=== PATIENT | female | born 1985 | race American Indian/Alaskan Native ===

== ENCOUNTER 2017-08-27 02:11 | Emergency (ER) | payer BC ==
[2017-08-27 03:59] LABS: Bacteria,Urine 1+ /HPF (Negative); Bilirubin,Urine NEG (Negative); Blood,Urine MOD (Negative); Color,Urine Yellow (Yellow); Mucus,Urine 2+ /HPF; Protein,Urine <15 mg/dL mg/dL (Negative); Urobilinogen,Urine < 2.0 mg/dL (<2.0)
[2017-08-27 04:10] LABS: Basophils # (Auto) 0.1 K/mm3 (0.0-0.1); Basophils % (Auto) 0.7 % (0.0-1.8); Eosinophils % (Auto) 0.2 % (0.0-4.3); Hematocrit 34.2 % (30.3-42.9); Hemoglobin 10.7 gm/dl (10.1-14.3); Lymphocytes # (Auto) 1.2 K/mm3 (1.2-5.4); Lymphocytes % (Auto) 9.5 % (13.4-35.0); Mean Corpuscular HGB Conc 31 % (30-34); Mean Corpuscular Volume 82 fl (79-97); Monocytes # (Auto) 0.3 K/mm3 (0.0-0.8); Monocytes % (Auto) 2.3 % (0.0-7.3); Platelet Count 495 K/mm3 (140-440); Red Blood Count 4.19 M/mm3 (3.65-5.03); Red Cell Distribution Width 16.8 % (13.2-15.2)
[2017-08-27 04:15] LABS: Mean Corpuscular Hemoglobin 26 pg (28-32)
[2017-08-27 04:28] LABS: Albumin 3.6 g/dL (3.9-5); BUN/Creatinine Ratio 14; Blood Urea Nitrogen 11 mg/dL (7-17); Calcium 8.5 mg/dL (8.4-10.2); Hemolysis Index 301; Lipase 21 units/L (13-60)
[2017-08-27 04:39] LABS: Alanine Aminotransferase 13 units/L (7-56)
[2017-08-27] MEDS ORDERED: NACL 0.9% 500 ML 500 ML IV ONE (08:02)
[2017-08-27] MEDS ORDERED: XYLOCAINE CARDIAC IV ONE ×2 (08:02→10:00)
[2017-08-27] MEDS ORDERED: ZOFRAN IV ONE (08:02)
[2017-08-27] MEDS ORDERED: TORADOL IV ONE (08:02)
[2017-08-27] MEDS ORDERED: DILAUDID IV ONE (08:03)
--- NOTE | 2017-08-27 08:03 | Emergency Department Report ---
ED General Adult HPI - General Chief complaint: Abdominal Pain Stated complaint: POSS KIDNEY PAIN Time Seen by Provider: 08/27/17 07:51 Source: patient Mode of arrival: Ambulatory Limitations: No Limitations - History of Present Illness Initial comments: This is a 32-year-old female who was unknown to this provider previously, history of kidney stones, since with nontraumatic left-sided renal colic, radiating down to the left lower extremity, resolved nausea and vomiting, no urinary symptoms, reports it feels similar to prior episodes of renal colic. -: Sudden Location: back, abdomen Radiation: flank Severity scale (0 -10): 0 Quality: aching Consistency: intermittent Improves with: medication Worsens with: none Associated Symptoms: nausea/vomiting, other (patient denies dysuria, urinary frequency, obstructive urinary symptoms). denies: confusion, chest pain, cough , diaphoresis, fever/chills, headaches, loss of appetite, malaise, rash, seizure , shortness of breath, syncope, weakness - Related Data Previous Rx's Medication Instructions Recorded Last Taken Type Ketorolac [Toradol] 10 mg PO Q6H PRN #20 tablet 08/27/17 Unknown Rx Ondansetron [Zofran Odt] 4 mg PO Q8HR PRN #20 tab.rapdis 08/27/17 Unknown Rx Tamsulosin [Flomax] 0.4 mg PO QDAY #30 cap 08/27/17 Unknown Rx oxyCODONE [Roxicodone] 5 mg PO Q6HR PRN #15 tablet 08/27/17 Unknown Rx Allergies Allergy/AdvReac Type Severity Reaction Status Date / Time No Known Allergies Allergy Unverified 08/27/17 03:11 ED Review of Systems ROS: Stated complaint: POSS KIDNEY PAIN Other details as noted in HPI Comment: All other systems reviewed and negative ED Past Medical Hx - Past Medical History Previous Medical History?: Yes Hx Kidney Stones: Yes - Surgical History Past Surgical History?: Yes Hx Appendectomy: Yes Additional Surgical History: Ectopic , Lump in right breast - Social History Smoking Status: Never Smoker - Medications Home Medications: Home Medications Medication Instructions Recorded Confirmed Last Taken Type Ketorolac [Toradol] 10 mg PO Q6H PRN #20 tablet 08/27/17 Unknown Rx Ondansetron [Zofran Odt] 4 mg PO Q8HR PRN #20 tab.rapdis 08/27/17 Unknown Rx Tamsulosin [Flomax] 0.4 mg PO QDAY #30 cap 08/27/17 Unknown Rx oxyCODONE [Roxicodone] 5 mg PO Q6HR PRN #15 tablet 08/27/17 Unknown Rx ED Physical Exam - General Limitations: No Limitations General appearance: alert, in no apparent distress - Head Head exam: Present: atraumatic, normocephalic - Eye Eye exam: Present: normal appearance, EOMI. Absent: nystagmus - ENT ENT exam: Present: normal exam, normal orophraynx, mucous membranes moist, normal external ear exam - Neck Neck exam: Present: normal inspection, full ROM - Respiratory Respiratory exam: Present: normal lung sounds bilaterally. Absent: respiratory distress - Cardiovascular Cardiovascular Exam: Present: regular rate, normal rhythm, normal heart sounds. Absent: bradycardia, tachycardia, irregular rhythm, systolic murmur, diastolic murmur, rubs, gallop - GI/Abdominal GI/Abdominal exam: Present: soft, normal bowel sounds. Absent: distended, tenderness, guarding, rebound, rigid, pulsatile mass - Extremities Exam Extremities exam: Present: normal inspection, full ROM, normal capillary refill. Absent: pedal edema, joint swelling, calf tenderness - Back Exam Back exam: Present: normal inspection, full ROM, CVA tenderness (L). Absent: tenderness, CVA tenderness (R), paraspinal tenderness, vertebral tenderness - Neurological Exam Neurological exam: Present: alert, oriented X3, CN II-XII intact, normal gait, other (Extraocular movements intact. Tongue midline. No facial droop. Facial sensation intact to light touch in the V1, V2, V3 distribution bilaterally. 5 and 5 strength in 4 extremities.. Sensation is intact to light touch in 4 extremities.). Absent: motor sensory deficit - Psychiatric Psychiatric exam: Present: normal affect, normal mood - Skin Skin exam: Present: warm, dry, intact, normal color. Absent: rash ED Course Vital Signs 08/27/17 08/27/17 08/27/17 02:13 03:15 03:20 Temperature 98.9 F 98.9 F 98.0 F Pulse Rate 70 71 78 Respiratory 18 18 16 Rate Blood Pressure 135/93 135/93 Blood Pressure 137/82 [Left] O2 Sat by Pulse 98 98 99 Oximetry 08/27/17 08/27/17 08/27/17 05:50 05:53 08:00 Temperature 99.3 F Pulse Rate 71 90 Respiratory 16 16 17 Rate Blood Pressure Blood Pressure 141/90 129/69 [Left] O2 Sat by Pulse 100 99 100 Oximetry 08/27/17 10:40 Temperature Pulse Rate 79 Respiratory 16 Rate Blood Pressure Blood Pressure 123/82 [Left] O2 Sat by Pulse 100 Oximetry ED Medical Decision Making - Lab Data Result diagrams: 08/27/17 03:54 08/27/17 03:54 Vital Signs 08/27/17 08/27/17 08/27/17 02:13 03:15 03:20 Temperature 98.9 F 98.9 F 98.0 F Pulse Rate 70 71 78 Respiratory 18 18 16 Rate Blood Pressure 135/93 135/93 Blood Pressure 137/82 [Left] O2 Sat by Pulse 98 98 99 Oximetry 08/27/17 08/27/17 08/27/17 05:50 05:53 08:00 Temperature 99.3 F Pulse Rate 71 90 Respiratory 16 16 17 Rate Blood Pressure Blood Pressure 141/90 129/69 [Left] O2 Sat by Pulse 100 99 100 Oximetry Lab Results 08/27/17 08/27/17 08/27/17 Range/Units 03:29 03:54 03:54 WBC 12.4 H (4.5-11.0) K/mm3 RBC 4.19 (3.65-5.03) M/mm3 Hgb 10.7 (10.1-14.3) gm/dl Hct 34.2 (30.3-42.9) % MCV 82 (79-97) fl MCH 26 L (28-32) pg MCHC 31 (30-34) % RDW 16.8 H (13.2-15.2) % Plt Count 495 H (140-440) K/mm3 Lymph % (Auto) 9.5 L (13.4-35.0) % Pope % (Auto) 2.3 (0.0-7.3) % Eos % (Auto) 0.2 (0.0-4.3) % Baso % (Auto) 0.7 (0.0-1.8) % Lymph # 1.2 (1.2-5.4) K/mm3 Pope # 0.3 (0.0-0.8) K/mm3 Eos # 0.0 (0.0-0.4) K/mm3 Baso # 0.1 (0.0-0.1) K/mm3 Seg Neutrophils % 87.3 H (40.0-70.0) % Seg Neutrophils # 10.8 H (1.8-7.7) K/mm3 Sodium 135 L (137-145) mmol/L Potassium 5.3 H (3.6-5.0) mmol/L Chloride 102.7 (98-107) mmol/L Carbon Dioxide 21 L (22-30) mmol/L Anion Gap 17 mmol/L BUN 11 (7-17) mg/dL Creatinine 0.8 (0.7-1.2) mg/dL Estimated GFR > 60 ml/min BUN/Creatinine Ratio 14 % Glucose 117 H (65-100) mg/dL Calcium 8.5 (8.4-10.2) mg/dL Total Bilirubin 0.30 (0.1-1.2) mg/dL AST 77 H (5-40) units/L ALT 13 (7-56) units/L Alkaline Phosphatase 34 L (35-129) units/L Total Protein 7.5 (6.3-8.2) g/dL Albumin 3.6 L (3.9-5) g/dL Albumin/Globulin Ratio 0.9 % Lipase 21 (13-60) units/L HCG, Qual (Negative) Urine Color Yellow (Yellow) Urine Turbidity Slightly cloudy (Clear) Urine pH 6.0 (5.0-7.0) Ur Specific [place] 1.018 (1.003-1.030) Urine Protein <15 mg/dl (Negative) mg/dL Urine Glucose (UA) Neg (Negative) mg/dL Urine Ketones 20 (Negative) mg/dL Urine Blood Mod (Negative) Urine Nitrite Neg (Negative) Urine Bilirubin Neg (Negative) Urine Urobilinogen < 2.0 (<2.0) mg/dL Ur Leukocyte Esterase Tr (Negative) Urine WBC (Auto) 3.0 (0.0-6.0) /HPF Urine RBC (Auto) 52.0 (0.0-6.0) /HPF U Epithel Cells (Auto) 2.0 (0-13.0) /HPF Urine Bacteria (Auto) 1+ (Negative) /HPF Urine Mucus 2+ /HPF 05/29/18 Range/Units 03:54 WBC (4.5-11.0) K/mm3 RBC (3.65-5.03) M/mm3 Hgb (10.1-14.3) gm/dl Hct (30.3-42.9) % MCV (79-97) fl MCH (28-32) pg MCHC (30-34) % RDW (13.2-15.2) % Plt Count (140-440) K/mm3 Lymph % (Auto) (13.4-35.0) % Pope % (Auto) (0.0-7.3) % Eos % (Auto) (0.0-4.3) % Baso % (Auto) (0.0-1.8) % Lymph # (1.2-5.4) K/mm3 Pope # (0.0-0.8) K/mm3 Eos # (0.0-0.4) K/mm3 Baso # (0.0-0.1) K/mm3 Seg Neutrophils % (40.0-70.0) % Seg Neutrophils # (1.8-7.7) K/mm3 Sodium (137-145) mmol/L Potassium (3.6-5.0) mmol/L Chloride (98-107) mmol/L Carbon Dioxide (22-30) mmol/L Anion Gap mmol/L BUN (7-17) mg/dL Creatinine (0.7-1.2) mg/dL Estimated GFR ml/min BUN/Creatinine Ratio % Glucose (65-100) mg/dL Calcium (8.4-10.2) mg/dL Total Bilirubin (0.1-1.2) mg/dL AST (5-40) units/L ALT (7-56) units/L Alkaline Phosphatase (35-129) units/L Total Protein (6.3-8.2) g/dL Albumin (3.9-5) g/dL Albumin/Globulin Ratio % Lipase (13-60) units/L HCG, Qual Negative (Negative) Urine Color (Yellow) Urine Turbidity (Clear) Urine pH (5.0-7.0) Ur Specific [place] (1.003-1.030) Urine Protein (Negative) mg/dL Urine Glucose (UA) (Negative) mg/dL Urine Ketones (Negative) mg/dL Urine Blood (Negative) Urine Nitrite (Negative) Urine Bilirubin (Negative) Urine Urobilinogen (<2.0) mg/dL Ur Leukocyte Esterase (Negative) Urine WBC (Auto) (0.0-6.0) /HPF Urine RBC (Auto) (0.0-6.0) /HPF U Epithel Cells (Auto) (0-13.0) /HPF Urine Bacteria (Auto) (Negative) /HPF Urine Mucus /HPF - Radiology Data Radiology results: report reviewed Limited left-sided renal ultrasound demonstrates possible mild left-sided hydronephrosis, echogenic foci noted in the renal pelvis measuring 0.45 cm, the left kidney was 10.8 x 4.2 x 5.9 cm. - Medical Decision Making Differential diagnosis, including but not limited to: Renal colic Assessment and plan: 32-year-old female with a past medical history of renal colic who presented with her typical renal colic. She is afebrile with reassuring vital signs has a benign physical exam, soft abdomen/pelvis, and is tolerating liquid feeds at this time. A left-sided ultrasounds suggested renal stone. Extensive discussion had with the patient. She agrees to forego CAT scan at this time at a concern for radiation, given her urinalysis which appears to be inconsistent with urinary tract infection, benign physical exam, otherwise normal laboratory studies, I think that this plan of care is reasonable. She indicates she will follow-up with an outpatient urology specialist. She felt much improved after IV lidocaine, Toradol, and hydromorphone. Critical care attestation.: If time is entered above; I have spent that time in minutes in the direct care of this critically ill patient, excluding procedure time. ED Disposition Clinical Impression: Flank pain Disposition: DC-01 TO HOME OR SELFCARE Is pt being admited?: No Does the pt Need Aspirin: No Condition: Stable Instructions: Renal Colic (ED) Additional Instructions: As we discussed, symptoms likely coming from symptomatic kidney stone. Preliminary interpretation of the ultrasound suggested a kidney stone. Have primary care doctor or urology specialist contact the medical records department to obtain the formal and final interpretation of the kidney ultrasound. Take the pain medication, nausea medication as needed/directed. Follow-up with a urology specialist within the next 2 weeks. Return to the ER right away with new pain, worsening pain, migration of pain, fevers, chills, confusion, projectile vomiting, change in mental status, inability to tolerate liquid feeds. Prescriptions: Ketorolac [Toradol] 10 mg PO Q6H PRN #20 tablet PRN Reason: Pain Ondansetron [Zofran Odt] 4 mg PO Q8HR PRN #20 tab.rapdis PRN Reason: Nausea oxyCODONE [Roxicodone] 5 mg PO Q6HR PRN #15 tablet PRN Reason: Pain Tamsulosin [Flomax] 0.4 mg PO QDAY #30 cap Referrals: PRIMARY CAREMD [Primary Care Provider] - 3-5 Days JAIRO DUMONT MD [Staff Physician] - 3-5 Days Forms: Work/School Release Form(ED)
[2017-08-27] MEDS ORDERED: NACL 0.9% IV ONE (10:00)
[2017-08-27 10:41] VITALS: BP 123/82
--- NOTE | 2017-08-28 12:36 | Ultrasound Report ---
Left Renal sonogram: History: Left renal colic. Findings: Left kidney measures 10.8 x 4.2 x 5.9 cm. Cortical thickness 1.7 cm. Mild hydronephrosis. Small echogenic focus identified in renal pelvis measuring 5 mm in diameter suggestive of a nonobstructing calculus. Impression: Suspected mild hydronephrosis. Nonobstructing calculus in pelvis left ureter.
== END 2017-08-27 10:41 | disposition home or self-care (01) ==
LOC: ED 02:11
DX: N23 Unspecified renal colic (principal); R10.30 Lower abdominal pain, unspecified; R11.2 Nausea with vomiting, unspecified; Z87.442 Personal history of urinary calculi; M54.9 Dorsalgia, unspecified
CPT/HCPCS: 36415; 76775; 80053; 81001; 83690; 84703; 85025; 96374; 96375; 99284; J1170; J1885; J2001; J2405; J7040